=== PATIENT | male | born 1975 | race Caucasian/White ===

== ENCOUNTER 2020-01-09 19:01 | Emergency (ER) | payer OTHER ==
[~2020-01-09] VITALS: Ht 177.8 cm; Wt 93.0 kg
[2020-01-09 19:25] VITALS: BP 118/75
--- NOTE | 2020-01-09 19:27 | NUR ---
TO LOBBY A/W BED AMBULATORY
--- NOTE | 2020-01-09 20:09 | NUR ---
PT AMBULATED TO CHAIR D WITH FAMILY MEMBER
--- NOTE | 2020-01-09 20:12 | NUR ---
44/M presents to ED with family/friend, c/o fever, bodyaches, episode of vomiting, x1 day. Pt has had cough/congestion x2-3 days. Reports diarrhea. Pt awake and alert, skin normal color warm and dry, rr even and unlabored. Lung sounds with mild wheeze on BL bases. Hx DM, HTN Rx metformin, glipizide, HCTZ
[2020-01-09] MEDS ORDERED: KETOROLAC 60 MG/2 ML VIAL IM ONE (20:50)
[2020-01-09] MEDS ORDERED: ONDANSETRON 4 MG ODT PO ONE (20:50)
[2020-01-09 21:22] VITALS: BP 133/86
--- NOTE | 2020-01-09 21:23 | NUR ---
Patient discharged with v/s stable. Written and verbal after care instructions given and explained. Patient alert, oriented and verbalized understanding of instructions. Ambulatory with steady gait. All questions addressed prior to discharge. ID band removed. Patient advised to follow up with PMD. Rx of promethazine DM, tamiflu, zofran ODT, ibuprofen given. Patient educated on indication of medication including possible reaction and side effects. Opportunity to ask questions provided and answered.
== END 2020-01-09 21:22 | disposition home or self-care (01) ==
LOC: MED 19:01
DX: J10.1 Influenza due to other identified influenza virus with other respiratory manifestations (principal); E11.9 Type 2 diabetes mellitus without complications; I10 Essential (primary) hypertension; Z88.1 Allergy status to other antibiotic agents
CPT/HCPCS: 87804; 96372; 99283; J1885; Q0162